=== PATIENT | male | born 1960 | race Caucasian/White ===

== ENCOUNTER 2018-08-20 00:57 | Emergency (ER) | payer OTHER ==
[~2018-08-20] VITALS: Ht 170.2 cm; Wt 102.1 kg
--- NOTE | 2018-08-20 01:09 | NUR ---
PT BIB RA FROM [facility] WITH A C/O MIDSTERNAL INCISION PAIN WITH MOVEMENT AND PALPATION. PT STATED THAT IT STARTED HURTING WHEN HE WAS MOVED FROM HIS BED TO A . PT HAD A CABG ON 07/26/18.
[2018-08-20] MEDS ORDERED: MORPHINE SULFATE INJ 4 MG/ML DISP.SYRIN ONE (01:13)
[2018-08-20 01:22] LABS: BASOPHILS # (AUTO) 0.1 /CMM (0.0-0.2); BASOPHILS % (AUTO) 0.7 % (0.0-2.0); EOSINOPHILS % (AUTO) 6.4 % (0.0-6.0); HEMATOCRIT 32 % (39-51); HEMOGLOBIN 10.7 g/dL (13.5-17.5); LYMPHOCYTES % (AUTO) 13.9 % (20.0-44.0); MEAN CORPUSCULAR HGB CONC 33 g/dl (31.0-36.0); MEAN CORPUSCULAR VOLUME 85 fL (80-96); MONOCYTES # (AUTO) 0.6 /CMM (0.1-1.30); MONOCYTES % (AUTO) 8.4 % (2.0-12.0); NEUTROPHILS # (AUTO) 5.2 /CMM (1.8-8.9); NEUTROPHILS % (AUTO) 70.6 % (43.0-81.0); PLATELET COUNT (AUTO) 160 /CMM (150-450); RED BLOOD CELL COUNT(AUTO) 3.81 MIL/uL (4.5-6.0); WHITE BLOOD COUNT (AUTO) 7.4 K/uL (4.3-11.0)
[2018-08-20] MEDS ORDERED: MORPHINE SULFATE INJ 2 MG/ML DISP.SYRIN IV ONE (01:30)
--- NOTE | 2018-08-20 01:40 | NUR ---
XRAY IN PROGRESS AT THE BEDSIDE.
[2018-08-20 01:44] LABS: CALCIUM, SERUM 8.6 mg/dL (8.5-10.1); CREATININE 0.7 mg/dL (0.6-1.3); POTASSIUM 3.9 mmol/L (3.5-5.1)
--- NOTE | 2018-08-20 01:49 | NUR ---
SPOKE TO PATTI AT [facility]. LUIS 9950 TRIP#: [id number]
[2018-08-20] MEDS ORDERED: LISINOPRIL (5MG) 5 MG TABLET ONE (02:57)
--- NOTE | 2018-08-20 03:00 | NUR ---
PT'S BP WAS ELEVATED 151/101. NEW ORDERS GIVEN. ER DID NOT HAVE THE MEDICATION, BUT WAS ABLE TO OBTAIN MEDICATION FROM [facility].
[2018-08-20] MEDS: LISINOPRIL (5MG) 5 MG TABLET PO SCH ×2 (03:03→04:11)
--- NOTE | 2018-08-20 03:03 | NUR ---
RECYCLED PT'S BP. BP IS NOW 145/93. NOTIFIED. HOLD LISINOPRIL PER DR ROJAS.
--- NOTE | 2018-08-20 03:41 | NUR ---
PT APPEARS TO BE RESTING COMFORTABLY WITH NO S/S OF PAIN OR DISTRESS. VSS.
--- NOTE | 2018-08-20 04:12 | NUR ---
Report given to [facility] emt. Called [facility] to let them know that the pt is returning. Patient discharged to home in stable condition. Written and verbal after care instructions given. Patient verbalizes understanding of instruction. Pt left via ambulance. VSS
[2018-08-20 04:15] VITALS: BP 138/92
== END 2018-08-20 04:16 | disposition home or self-care (01) ==
LOC: ER 00:57
DX: R07.89 Other chest pain (principal); G89.18 Other acute postprocedural pain; I10 Essential (primary) hypertension; I25.2 Old myocardial infarction; E11.9 Type 2 diabetes mellitus without complications; Z95.5 Presence of coronary angioplasty implant and graft; Z98.890 Other specified postprocedural states
CPT/HCPCS: 36415; 71045; 80048; 82962; 83880; 84484; 85025; 93005; 96374; 99284; J2270

== ENCOUNTER 2018-10-14 01:11 | Emergency (ER) | payer OTHER, MEDICAID ==
[~2018-10-14] VITALS: Ht 170.2 cm; Wt 90.7 kg
[2018-10-14] MEDS ORDERED: MORPHINE SULFATE INJ 2 MG/ML DISP.SYRIN IV ONE (01:30)
[2018-10-14] MEDS ORDERED: ONDANSETRON HCL/PF 4 MG/2 ML VIAL IVP ONE (01:30)
--- NOTE | 2018-10-14 01:30 | NUR ---
BIBA FOR C/O CP RADIATING TO THE RA PER PT HES BEEN HAVING THIS PAIN FOR THE PAST TWO MONTHS BUT WORSE TODAY. 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 PT STILL HAS A 1X1CM WOUND W /DISCHARGES ON THE ANTERIOR CHEST. PLACED ON A MONITOR , VSS. WILL CONT TO MONITOR ,
[2018-10-14] MEDS ORDERED: ONDANSETRON HCL/PF 4 MG/2 ML VIAL ONE (01:36)
[2018-10-14] MEDS ORDERED: MORPHINE SULFATE INJ 4 MG/ML DISP.SYRIN ONE (01:36)
[2018-10-14 01:48] LABS: BASOPHILS # (AUTO) 0.1 /CMM (0.0-0.2); BASOPHILS % (AUTO) 0.9 % (0.0-2.0); EOSINOPHILS % (AUTO) 1.9 % (0.0-6.0); HEMATOCRIT 37 % (39-51); HEMOGLOBIN 12.1 g/dL (13.5-17.5); LYMPHOCYTES # (AUTO) 1.2 /CMM (0.8-4.8); LYMPHOCYTES % (AUTO) 11.6 % (20.0-44.0); MEAN CORPUSCULAR HGB CONC 33 g/dl (31.0-36.0); MEAN CORPUSCULAR VOLUME 79 fL (80-96); MONOCYTES # (AUTO) 0.6 /CMM (0.1-1.30); MONOCYTES % (AUTO) 5.6 % (2.0-12.0); NEUTROPHILS # (AUTO) 8.3 /CMM (1.8-8.9); PLATELET COUNT (AUTO) 320 /CMM (150-450); RED BLOOD CELL COUNT(AUTO) 4.68 MIL/uL (4.5-6.0); WHITE BLOOD COUNT (AUTO) 10.4 K/uL (4.3-11.0)
[2018-10-14 01:54] LABS: CALCIUM, SERUM 9.1 mg/dL (8.5-10.1); CREATININE 0.7 mg/dL (0.6-1.3); POTASSIUM 4.7 mmol/L (3.5-5.1)
--- NOTE | 2018-10-14 02:01 | NUR ---
Patient is resting comfortably in bed with eyes closed. Easily aroused. VSS
[2018-10-14] MEDS ORDERED: ASPIRIN 325 MG TABLET PO ONE (03:00)
--- NOTE | 2018-10-14 03:04 | NUR ---
[facility] FAX# [phone] ATT: ZACHARY
[2018-10-14] MEDS ORDERED: ASPIRIN 325 MG TABLET ONE (03:06)
--- NOTE | 2018-10-14 03:25 | NUR ---
ACCEPTED AT [facility] BY DR. TELLES [facility] [id number] [place], [place] [id number] FAVIO, LINUX UNIX ADMINISTRATOR FOR REPORT
--- NOTE | 2018-10-14 03:31 | NUR ---
[facility] TRIP #[id number] ETA APROX [id number]
--- NOTE | 2018-10-14 03:36 | NUR ---
CALLED [facility] AND GAVE REPORT TO FAVIO (ER CHARGE NURSE)
[2018-10-14 04:16] VITALS: BP 109/77
--- NOTE | 2018-10-14 04:17 | NUR ---
PT WWAS TRANSFERRED TO [facility] IN STABLE CONDITION WITH ACLS TRANSPO. VSS
[2018-11-23] MEDS ORDERED: LACT1CAP72 PO (14:40)
[2018-11-23] MEDS ORDERED: METH500T6 PO (14:40)
[2018-11-23] MEDS ORDERED: CEFT1VIA15 IV (14:40)
[2018-11-23] MEDS ORDERED: ATOR10TA PO (14:40)
[2018-11-23] MEDS ORDERED: RXVAN XX (14:40)
[2018-11-23] MEDS ORDERED: LOSA50TA3 PO (14:40)
[2018-11-23] MEDS ORDERED: VANC1.2526 IV (14:40)
[2018-11-23] MEDS ORDERED: OXYC1TAB8 PO (14:40)
[2018-11-23] MEDS ORDERED: GABA300C PO (14:40)
== END 2018-10-14 04:21 | disposition short-term general hospital (02) ==
LOC: ER 01:14
DX: I21.4 Non-ST elevation (NSTEMI) myocardial infarction (principal); T81.49XA Infection following a procedure, other surgical site, initial encounter; I10 Essential (primary) hypertension; I48.91 Unspecified atrial fibrillation; E11.9 Type 2 diabetes mellitus without complications; Z98.890 Other specified postprocedural states; Z95.818 Presence of other cardiac implants and grafts
CPT/HCPCS: 36415; 71045; 80048; 83605; 84484; 85025; 87040 ×2; 87070; 93005; 96374; 96375; 99285; A6402; J2270; J2405

== ENCOUNTER 2018-11-21 21:54 | Inpatient (IN) | payer MEDICAID, OTHER ==
[~2018-11-21] VITALS: Ht 170.2 cm; Wt 98.0 kg
--- NOTE | 2018-11-21 22:10 | NUR ---
BIBA FOR C/O CP X 1 WK. HAD A HEART VALVE REPLACEMENT ON 07/26/18 AND R FOOT AMPUTATION 2 WKS PRIOR TO THAT. PLACED ON A MONITOR.
--- NOTE | 2018-11-21 22:13 | NUR ---
ECG TECH AT THE BED SIDE
[2018-11-21] MEDS ORDERED: CLINDAMYCIN 900 MG in IV D5W 100 ML IV ONE (22:30)
[2018-11-21] MEDS ORDERED: NITROGLYCERIN PACKET 1 GM PACKET TD ONE (22:30)
[2018-11-21] MEDS ORDERED: ASPIRIN 81 MG TAB.CHEW PO ONE (22:30)
[2018-11-21] MEDS ORDERED: ONDANSETRON HCL/PF 4 MG/2 ML VIAL IVP ONE (22:30)
[2018-11-21] MEDS ORDERED: HYDROMORPHONE INJ 2 MG/ML DISP.SYRIN IV ONE (22:30)
[2018-11-21] MEDS ORDERED: NITROGLYCERIN 0.4 MG/TAB BOTTLE SL ONE (22:30)
[2018-11-21] MEDS ORDERED: ASPIRIN 81 MG TAB.CHEW ONE (22:42)
[2018-11-21] MEDS ORDERED: NITROGLYCERIN PACKET 1 GM PACKET ONE (22:42)
[2018-11-21] MEDS ORDERED: NITROGLYCERIN 0.4 MG/TAB BOTTLE ONE (22:42)
[2018-11-21] MEDS ORDERED: ONDANSETRON HCL/PF 4 MG/2 ML VIAL ONE (22:42)
[2018-11-21] MEDS ORDERED: HYDROMORPHONE 1 MG/1 ML DISP.SYRIN ONE (22:42)
[2018-11-21 22:50] LABS: BASOPHILS # (AUTO) 0.1 /CMM (0.0-0.2); BASOPHILS % (AUTO) 1.1 % (0.0-2.0); EOSINOPHILS % (AUTO) 4.2 % (0.0-6.0); HEMATOCRIT 31 % (39-51); LYMPHOCYTES % (AUTO) 9.6 % (20.0-44.0); MEAN CORPUSCULAR HGB CONC 33 g/dl (31.0-36.0); MEAN CORPUSCULAR VOLUME 77 fL (80-96); MONOCYTES # (AUTO) 0.8 /CMM (0.1-1.30); MONOCYTES % (AUTO) 8.3 % (2.0-12.0); NEUTROPHILS # (AUTO) 7.7 /CMM (1.8-8.9); NEUTROPHILS % (AUTO) 76.8 % (43.0-81.0); PLATELET COUNT (AUTO) 299 /CMM (150-450); RED BLOOD CELL COUNT(AUTO) 3.97 MIL/uL (4.5-6.0); WHITE BLOOD COUNT (AUTO) 10.1 K/uL (4.3-11.0)
[2018-11-21] MEDS ORDERED: CLINDAMYCIN 900 MG/6 ML VIAL ONE (22:55)
[2018-11-21 22:59] LABS: CALCIUM, SERUM 8.5 mg/dL (8.5-10.1); CREATININE 0.7 mg/dL (0.6-1.3); POTASSIUM 4.5 mmol/L (3.5-5.1)
[2018-11-21 23:12] LABS: ALBUMIN 1.9 g/dL (3.4-5.0); BILIRUBIN,DIRECT 0.1 mg/dL (0.0-0.2); BILIRUBIN,TOTAL 0.2 mg/dL (0.2-1.0); TOTAL PROTEIN, SERUM 6.8 g/dL (6.4-8.2)
[2018-11-21 23:42] LABS: D-DIMER 2.71 mg/L(FEU (0.17-0.50)
[2018-11-22] MEDS ORDERED: CT SWABBABLE VALVE TRANS SET 1 EA INFUS.SET MC ONE (00:05)
[2018-11-22] MEDS ORDERED: IOHEXOL-350 100 ML VIAL IV ONE (00:05)
[2018-11-22] MEDS ORDERED: IV NS 0.9% 250 ML IV ONE (00:05)
--- NOTE | 2018-11-22 01:05 | NUR ---
Patient is resting comfortably in bed with eyes closed. Easily aroused. VSS
[2018-11-22] MEDS ORDERED: HYDROMORPHONE 1 MG/1 ML DISP.SYRIN ONE (02:13)
--- NOTE | 2018-11-22 02:26 | NUR ---
REPORT GIVEN TO NIKO ON THIRD FLOOR
[2018-11-22] MEDS ORDERED: VANCOMYCIN 1 GM in IV NS 0.9% 250 ML IV ONE (02:30)
[2018-11-22] MEDS ORDERED: HYDROMORPHONE 1 MG/1 ML DISP.SYRIN IV PRN (02:30)
[2018-11-22] MEDS ORDERED: ONDANSETRON HCL/PF 4 MG/2 ML VIAL IVP PRN (02:30)
[2018-11-22] MEDS ORDERED: Z GUARD REMEDY 2 OZ OINT TP PRN (02:30)
[2018-11-22] MEDS ORDERED: TAMS-12 GT (02:34)
[2018-11-22] MEDS ORDERED: FLUO-120 PO (02:34)
[2018-11-22] MEDS ORDERED: SENN-168 PO (02:34)
[2018-11-22] MEDS ORDERED: ASPI-1169 PO (02:34)
[2018-11-22] MEDS ORDERED: PANT40TA4 PO (02:34)
[2018-11-22] MEDS ORDERED: INSU100V7 SQ (02:34)
[2018-11-22] MEDS ORDERED: GABA-534 PO (02:34)
--- NOTE | 2018-11-22 02:45 | NUR ---
WIND TURBINE ERECTORVENEER SLICING MACHINE OPERATOR NOTES ADMITTED FROM ER THIS 57 Y.O. MALE, A RESIDENT OF [facility],WITH CHIEF COMPLAINTS OF CHEST PAIN X 1WEEK.A/O X4,WITH KNOWN HX OF BYPASS ON JULY 2018 AT [facility]..NOTED REDNESS ON INCISION SITE,NO EXUDATE NOTED.OPEN TO AIR.WITH KNOWN HX ALSO ON LEFT FOOT TRANSMETATARSAL AMPUTATION ON 06/2018.WITH RIGHT UPPER ARM PICC LINE INSERTED AT [facility].ORIENTED TO ROOM SET UP.CALL LIGHT IN REACH,NEEDS ANTICIPATED.
--- NOTE | 2018-11-22 02:57 | NUR ---
PT WAS TRANSFERRED TO 306-2 UNDER ACLS PROTOCOL IN STABLE CONDITION
[2018-11-22 03:00] VITALS: BP 101/72
[2018-11-22] MEDS ORDERED: DEXTROSE 50%-WATER 50 ML DISP.SYRIN IV PRN (03:00)
[2018-11-22] MEDS ORDERED: VANCOMYCIN 1.75 GM in IV NS 0.9% 500 ML IV ONE ×2 (03:30→04:30)
[2018-11-22] MEDS ORDERED: CEFTRIAXONE 1 G VIAL ONE (03:34)
[2018-11-22] MEDS: CEFTRIAXONE 1 G in IV D5W 50 ML IV SCH (03:35)
--- NOTE | 2018-11-22 03:35 | NUR ---
BALLPOINT PENS ASSEMBLER NOTES STARTED ON ROCEPHIN 1GM IV ORDERED.
[2018-11-22] MEDS ORDERED: VANCOMYCIN 1 GM VIAL ONE ×2 (03:57→03:59)
[2018-11-22 04:00] VITALS: BP 120/75
--- NOTE | 2018-11-22 04:42 | NUR ---
CORE INSPECTOR NOTES STARTED ON VANCOMYCIN 1.75MG IN NS 500ML INFUSING AT 250ML/HR RATE OVER 2 HOURS VIA IV PUMP.
[2018-11-22] MEDS: MORPHINE SULFATE INJ 4 MG/ML DISP.SYRIN IV PRN ×6 (05:22→22:14)
--- NOTE | 2018-11-22 05:22 | NUR ---
LOSS PREVENTION OPERATIONS MANAGER NOTES PAIN MANAGEMENT C/O CHEST PAIN 10/10 ON PAIN SCALE.MEDICATED WITH MORPHINE 4MG IV ORDERED.
--- NOTE | 2018-11-22 06:27 | NUR ---
LIVING SUPERVISOR NOTES SR WITH BBB,INSTRUCTED NPO FOR NOW TILL SEEN BY CARDIO.LAYING COMFORTABLY ON BED,IV ABX TOLERATED WELL.REFUSED BLOOD DRAW EARLY.MEAT PROCESS WORKER TO COMEBACK LATER.IN NO ACUTE DISTRESS.WILL ENDORSE TO DAY NURSE FOR LIZETT.
[2018-11-22] MEDS ORDERED: FEE PK DOSING 1 MIN EA MC ONE (06:50)
--- NOTE | 2018-11-22 07:30 | NUR ---
tele product design specialist: initial assessment received pt in bed awake, a/ox4. no c/o pain at this time. noted with mid chest area with wound; will defer to md. awaiting for md evaluation. tele sr with 1st degree av block with bbb. vss. pt had cabg done at the mo on 07/26/2018. for wound consult. instructed to call for assistance. will continue to monitor.
[2018-11-22] MEDS: BLOOD SUGAR DIAGNOSTIC 1 EACH STRIP IN SCH ×4 (07:36→21:14)
[2018-11-22 08:00] VITALS: BP 112/74
--- NOTE | 2018-11-22 08:30 | NUR ---
tele bead trimmer: cardio consult seen and examined by dr. casey with new orders. orders acknowledged.
[2018-11-22] MEDS: LOSARTAN POTASSIUM 50 MG TABLET PO SCH (08:52)
[2018-11-22] MEDS: ENOXAPARIN SODIUM 40 MG/0.4 ML DISP.SYRIN SQ SCH (08:52)
--- NOTE | 2018-11-22 09:00 | NUR ---
tele pupil personnel worker: md visit seen and examined by jojo blankenship (acnp) at this time. all questions and concerns by pt answered by jojo.
--- NOTE | 2018-11-22 09:19 | NUR ---
tele hvac sales engineer: notes c/o 02/03 chest pain, medicated with morphine 4mg ivp by rn. instructed to call for assistance. will continue to monitor.
[2018-11-22] MEDS: ATORVASTATIN 10 MG TABLET PO SCH (09:38)
[2018-11-22] MEDS: ASPIRIN 81 MG TAB.CHEW PO SCH (09:38)
[2018-11-22] MEDS: GABAPENTIN 300 MG CAPSULE PO SCH ×2 (09:38→17:29)
[2018-11-22] MEDS: PANTOPRAZOLE 40 MG TABLET.DR PO SCH (09:38)
[2018-11-22] MEDS: FLUOXETINE HCL 20 MG CAPSULE PO SCH (09:39)
--- NOTE | 2018-11-22 09:49 | NUR ---
tele pull through hooker: notes pt verbalized relief of chest pain 4/10 at this time. instructed to call for assistance. will monitor.
--- NOTE | 2018-11-22 10:00 | NUR ---
m/s felt dyeing machine tender: notes place a call to al medical record, spoke to alex and wants me to re fax the authorization for use or disclosure of health information once more if wants it urgent/stat as stated and per policy the routine will be up to 20 days. re faxed authorization for use or disclosure of health information as urgent.
[2018-11-22 11:19] LABS: CALCIUM, SERUM 8.4 mg/dL (8.5-10.1); CREATININE 0.7 mg/dL (0.6-1.3); MAGNESIUM 1.5 mg/dL (1.8-2.4); PHOSPHORUS 3.8 mg/dL (2.5-4.9); POTASSIUM 4.1 mmol/L (3.5-5.1)
[2018-11-22 11:20] LABS: FERRITIN 108 ng/mL (8-388)
[2018-11-22 11:21] LABS: THYROID STIMULATING HORMONE 1.6 uIU/mL (0.358-3.74)
[2018-11-22 11:22] LABS: IRON, SERUM 15 ug/dl (50-175); TOTAL IRON BINDING CAPACITY 182 ug/dl (250-450)
[2018-11-22 11:26] LABS: BASOPHILS # (AUTO) 0.1 /CMM (0.0-0.2); BASOPHILS % (AUTO) 0.7 % (0.0-2.0); EOSINOPHILS % (AUTO) 3.9 % (0.0-6.0); HEMATOCRIT 31 % (39-51); HEMOGLOBIN 9.9 g/dL (13.5-17.5); LYMPHOCYTES # (AUTO) 0.8 /CMM (0.8-4.8); LYMPHOCYTES % (AUTO) 8.8 % (20.0-44.0); MEAN CORPUSCULAR HGB CONC 32 g/dl (31.0-36.0); MEAN CORPUSCULAR VOLUME 77 fL (80-96); MONOCYTES # (AUTO) 0.8 /CMM (0.1-1.30); NEUTROPHILS # (AUTO) 6.8 /CMM (1.8-8.9); NEUTROPHILS % (AUTO) 77.6 % (43.0-81.0); PLATELET COUNT (AUTO) 279 /CMM (150-450); RED BLOOD CELL COUNT(AUTO) 3.98 MIL/uL (4.5-6.0); WHITE BLOOD COUNT (AUTO) 8.8 K/uL (4.3-11.0)
--- NOTE | 2018-11-22 11:35 | NUR ---
WOUND CARE CONSULT: PT PRESENTS WITH INCISION TO CHEST WITH RAISED CLEAR AREAS AND REDNESS AROUND INCISION, PRESENT ON ADMISSION. SURGICAL CONSULT CALLED TO DR LEHMAN PER ERIKA ZUÑIGA N.P. DR LEHMAN AWARE OF SURGICAL CONSULT REQUEST. DEFER TO SURGICAL TEAM FOR WOUND TREATMENT PLAN. PT IS INCONTINENT. RECOMMENDATIONS MADE FOR SKIN PROTECTION. DISCUSSED WITH NURSING STAFF. WILL SEE PRN. SHABAZZ IN AGREEMENT WITH PLAN OF CARE. Addendum: 11/23/18 at 0930 by EDER BYOD WNDNU ADDITIONALLY RT FOOT SCARRING NOTED FROM PREVIOUS TMA SURGERY.
--- NOTE | 2018-11-22 12:00 | NUR ---
m/s high risk case manager: notes pt refused to be repositioned despite encouragement. pt remains easily irritated. instructed to call for assistance. will monitor.
--- NOTE | 2018-11-22 12:15 | NUR ---
m/s household appliance installer: notes c/o 10/10 chest pain, medicated with morphine 4mg ivp by rn. instructed to call for assistance. will continue to monitor.
[2018-11-22] MEDS: VANCOMYCIN 1.25 GM in IV D5W 500 ML IV SCH ×2 (12:23→20:58)
--- NOTE | 2018-11-22 12:45 | NUR ---
m/s work over rig operator: notes pt still having lunch and voiced no discomfort at this time. instructed to call for assistance.
[2018-11-22] MEDS: Magnesium 1GM/D5W 100ML PREMIX 100 ML IV SCH ×2 (13:56→15:28)
--- NOTE | 2018-11-22 14:00 | NUR ---
carolyn/maureen reisn: notes received new treatment order from xi Causeyp.aDeanna plastic surgeon). order acknowledged. tx done as ordered. Addendum: 11/22/18 at 1829 by ALEXIS REISN pt refused to be repositioned, despite encouragement from staff.
--- NOTE | 2018-11-22 15:28 | NUR ---
m/s tank truck operator: notes c/o 10/10 chest pain, medicated with morphine 4mg ivp by rn. instructed to call for assistance. will continue to monitor.
[2018-11-22 16:00] VITALS: BP 110/77
--- NOTE | 2018-11-22 16:00 | NUR ---
m/s mogul operator: notes pt still refuses to be repositioned despite encouragement. pt remains easily irritated. instructed to call for assistance. will monitor.
--- NOTE | 2018-11-22 16:30 | NUR ---
m/s transport aircrewman: notes skin assessment corrected from 1000 intervention, pt has s/p right foot transmetatarsal amputation with healed incision and left foot assessment is incorrect.
[2018-11-22] MEDS: INSULIN REGULAR, HUMAN 100 UNIT/ML 3 ML VIAL SQ PRN ×2 (17:31→21:20)
--- NOTE | 2018-11-22 17:45 | NUR ---
m/s director of corporate real estate: id consult seen by dr. ball with order. order acknowledged. will f/u with the [facility] re: id's request.
--- NOTE | 2018-11-22 18:25 | NUR ---
m/s water ski assembler: notes pt refused am and pm care per alcoholic counselor. also pt refused to be repositioned, pt just wants to lay supine. when encourage and teaching provided, pt easily get irritated. needs attended. will continue to monitor. call light within reach.
--- NOTE | 2018-11-22 18:33 | NUR ---
m/s surgical garment fitter: notes c/o 12/04 chest pain, medicated with morphine 4mg ivp by rn. instructed to call for assistance. will continue to monitor.
--- NOTE | 2018-11-22 19:03 | NUR ---
m/s sand hauler: notes report given to alejandra (rn) for continuity of care. pt verbalized relief of pain. needs attended. call light within reach.
--- NOTE | 2018-11-22 19:30 | NUR ---
RN MS OPENING NOTES RECEIVED PATIENT IN BED AWAKE, ALERT AND ORIENTED X3, VERBALLY RESPONSIVE, ABLE TO MAKE NEEDS KNOWN. BREATHING EVEN AND UNLABORED. NO SOB NOTED. CURRENTLY WITH COMPLAINTS OF PAIN ON THE MID CHEST AREA. INFORMED PATIENT THAT THE PAIN MEDICATION IS NOT DUE YET AND WILL BE GIVEN WHEN IT IS DUE - PATIENT VERBALIZED UNDERSTANDING. RIGHT UPPER ARM PICC LINE INTACT AND PATENT. SKIN DRY AND WARM TO TOUCH. PATIENT NOTED WITH CONDOM CATH, INTACT AND DRAINING WELL. PATIENT ALSO ON BOOTS ON THE RIGHT FOOT S/P AMPUTATION 06/2018. DRESSING ON THE MID CHEST AREA CLEAN DRY AND INTACT. NO DRAINAGE NOTED. ALL OTHER NEEDS ATTENDED TO. SAFETY MEASURES IN PLACE. CALL LIGHT WITHIN REACH. WILL CONTINUE TO MONITOR. Addendum: 11/23/18 at 0017 by TORIBIO HERRMANN RN ERROR; TIME IS SUPPOSE TO BE 2029.
[2018-11-22 20:00] VITALS: BP 117/64
--- NOTE | 2018-11-22 20:25 | NUR ---
ALLEN BAKER TRANSFER OF CARE: CAME BACK TO THE UNIT FROM ICU, ALLEN SON GAVE REPORT TO TORIBIO FOR CONTINUITY OF CARE. Addendum: 11/23/18 at 0652 by VITOR GR RN CLARIFICATION FOR TRANSFER OF CARE NOTES: RN CAME BACK TO THE UNIT FROM ICU, ALLEN SON GAVE REPORT TO TORIBIO FOR CONTINUITY OF CARE.
--- NOTE | 2018-11-22 20:25 | NUR ---
RN NOTES TRANSFER OF CARE: RN CAME BACK TO THE UNIT FROM ICU, TRUCK DRIVER TEAMSTER HUY GAVE REPORT TO TORIBIO FOR CONTINUITY OF CARE.
[2018-11-22] MEDS: SENNOSIDES 8.6 MG TABLET PO SCH (21:07)
[2018-11-22] MEDS: TAMSULOSIN 0.4 MG CAP.SR.24H GT SCH (21:07)
[2018-11-22] MEDS: INSULIN GLARGINE, 100 UNIT/ML CARTRIDGE SQ SCH (21:17)
--- NOTE | 2018-11-22 22:00 | NUR ---
RN MS NOTES PATIENT REFUSED TO BE TURNED AND REPOSITION DESPITE EXPLANATION OF RISKS AND BENEFITS. PATIENT REFUSED MULTIPLE TIMES. WILL CONTINUE TO MONITOR AND ENCOURAGE.
--- NOTE | 2018-11-23 00:26 | NUR ---
RN MS NOTES PATIENT REFUSED TO BE TURNED AND REPOSITION DESPITE EXPLANATION OF RISKS AND BENEFITS.
--- NOTE | 2018-11-23 02:01 | NUR ---
RN MS NOTES PATIENT REFUSED TO BE TURNED AND REPOSITION DESPITE EXPLANATION OF RISKS AND BENEFITS.
[2018-11-23] MEDS: CEFTRIAXONE 1 G in IV D5W 50 ML IV SCH (03:27)
--- NOTE | 2018-11-23 04:00 | NUR ---
RN MS NOTES PATIENT REFUSED TO BE TURNED AND REPOSITION DESPITE EXPLANATION OF RISKS AND BENEFITS. PER PATIENT HE "JUST WANTS TO BE LEFT ALONE." WILL CONTINUE TO MONITOR AND ENCOURAGE.
--- NOTE | 2018-11-23 04:40 | NUR ---
RN MS NOTES PATIENT REFUSED BLOOD DRAW THIS AM WHICH INCLUDES VANCOMYCIN TROUGH. EXPLAINED RISKS AND BENEFITS BUT STILL REFUSED. EXPLAINED TO PATIENT THAT I WILL TAKE BLOOD FROM PICC LINE BUT PATIENT STILL REFUSED. PATIENT BECAME RUDE TOLD ME TO "LEAVE HIM ALONE." UNABLE TO GIVE VANCOMYCIN IV FOR 0500. KEN XIAO MADE AWARE OF PATIENT'S REFUSAL WELL NOT BEING ABLE TO GET VANCOMYCIN THIS MORNING. KEN PORTILLO SAID "K." NO FURTHER ORDERS. WILL CONTINUE TO MONITOR.
[2018-11-23] MEDS: VANCOMYCIN 1.25 GM in IV D5W 500 ML IV SCH ×2 (05:00→12:39)
[2018-11-23] MEDS: MORPHINE SULFATE INJ 4 MG/ML DISP.SYRIN IV PRN ×5 (05:05→23:20)
--- NOTE | 2018-11-23 05:15 | NUR ---
RN MS NOTES PATIENT AGREED TO BLOOD DRAW AND APOLOGIZED FOR HIS BEHAVIOR. PER PATIENT "ITS EARLY IN THE MORNING AND IM NOT USUALLY MYSELF THIS EARLY." ALSO PER PATIENT, HE JUST GOT STARTLED BY THE HOSPITAL ADMITTING CLERK WHICH TRIGGERED HIS RUDENESS. OFFERED TO DO BLOOD DRAW FROM PICC LINE AND PATIENT AGREED. CALLED LAB AND SPOKE WITH ABDIRIZAK. PER ABDIRIZAK, PHLEBOTOMISTS ARE ON THEIR WAY HERE.
--- NOTE | 2018-11-23 05:34 | NUR ---
RN MS NOTES BLOOD DRAW TAKEN FROM PICC LINE. WILL WAIT FOR RESULTS PRIOR TO GIVING VANCOMYCIN.
[2018-11-23] MEDS: BLOOD SUGAR DIAGNOSTIC 1 EACH STRIP IN SCH ×4 (06:33→21:31)
[2018-11-23] MEDS: INSULIN REGULAR, HUMAN 100 UNIT/ML 3 ML VIAL SQ PRN ×4 (06:34→21:35)
[2018-11-23 06:35] LABS: BASOPHILS # (AUTO) 0.1 /CMM (0.0-0.2); BASOPHILS % (AUTO) 0.8 % (0.0-2.0); EOSINOPHILS % (AUTO) 4.1 % (0.0-6.0); HEMATOCRIT 30 % (39-51); HEMOGLOBIN 9.6 g/dL (13.5-17.5); LYMPHOCYTES # (AUTO) 0.7 /CMM (0.8-4.8); LYMPHOCYTES % (AUTO) 8.7 % (20.0-44.0); MEAN CORPUSCULAR HGB CONC 32 g/dl (31.0-36.0); MEAN CORPUSCULAR VOLUME 77 fL (80-96); MONOCYTES # (AUTO) 0.8 /CMM (0.1-1.30); NEUTROPHILS # (AUTO) 6.5 /CMM (1.8-8.9); NEUTROPHILS % (AUTO) 77.4 % (43.0-81.0); PLATELET COUNT (AUTO) 267 /CMM (150-450); RED BLOOD CELL COUNT(AUTO) 3.86 MIL/uL (4.5-6.0); WHITE BLOOD COUNT (AUTO) 8.4 K/uL (4.3-11.0)
--- NOTE | 2018-11-23 06:48 | NUR ---
RN NOTES [id number] - NO RESULT FOR VANCO TROUGH YET. STILL PENDING.
--- NOTE | 2018-11-23 06:51 | NUR ---
RN MS CLOSING NOTES PATIENT RESTING IN BED. NO ACUTE CHANGES THROUGHOUT SHIFT. BREATHING EVEN AND UNLABORED. NO SOB NOTED. CURRENTLY WITH NO COMPLAINTS OF PAIN OR DISCOMFORT. RIGHT UPPER ARM PICC LINE INTACT AND PATENT. CONDOM CATH INTACT AND DRAINING WELL. PATIENT'S BOOTS ON THE RIGHT FOOT S/P AMPUTATION 06/2018. DRESSING ON THE MID CHEST AREA CLEAN DRY AND INTACT. NO DRAINAGE NOTED. ALL NEEDS ATTENDED TO. SAFETY MEASURES IN PLACE. CALL LIGHT WITHIN REACH. WILL ENDORSE TO ONCOMING NURSE FOR LIZETT.
--- NOTE | 2018-11-23 07:00 | NUR ---
RN MS NOTES CALLED PHARMACY AND SPOKE TO EMILIA REGARDING PATIENT'S VANCO TROUGH STILL PENDING. INFORMED EMILIA THAT THE VANCO IS 2 HOURS LATE DUE TO PATIENT'S REFUSAL ONT HE FIRST BLOOD DRAW AND THAT I WILL HAVE TO ENDORSE THE VANCOMYCIN IV TO DAY NURSE AND PER EMILIA THAT'S OK WAIT FOR TROUGH.
[2018-11-23 07:06] LABS: ALBUMIN 1.8 g/dL (3.4-5.0); BILIRUBIN,TOTAL 0.2 mg/dL (0.2-1.0); CALCIUM, SERUM 8.3 mg/dL (8.5-10.1); PHOSPHORUS 4.5 mg/dL (2.5-4.9); POTASSIUM 4.4 mmol/L (3.5-5.1); TOTAL PROTEIN, SERUM 6.6 g/dL (6.4-8.2)
--- NOTE | 2018-11-23 07:06 | NUR ---
RN MS NOTES RECEIVED VANCO TROUGH - 24. WILL HOLD VANCOMYCIN DOSE FOR 0500.
--- NOTE | 2018-11-23 07:40 | NUR ---
ms rn received on bed,awake,alert,oriented x3,not in any form of distress, respirations even and unlabored,no sob noted, lungs are clear,abdomen soft,positive bowel sounds,denies pain at this time,all needs attended.
[2018-11-23] MEDS: PANTOPRAZOLE 40 MG TABLET.DR PO SCH (08:06)
[2018-11-23 08:26] VITALS: BP 110/77
[2018-11-23] MEDS: GABAPENTIN 300 MG CAPSULE PO SCH ×3 (08:26→17:35)
[2018-11-23] MEDS: FLUOXETINE HCL 20 MG CAPSULE PO SCH (08:26)
[2018-11-23] MEDS: ACETAMINOPHEN 325 MG TABLET PO PRN (08:26)
[2018-11-23] MEDS: LOSARTAN POTASSIUM 50 MG TABLET PO SCH (08:26)
[2018-11-23] MEDS: ATORVASTATIN 10 MG TABLET PO SCH (08:26)
[2018-11-23] MEDS: ASPIRIN 81 MG TAB.CHEW PO SCH (08:26)
[2018-11-23] MEDS: LACTOBACILLUS RHAMNOSUS GG 1 EACH CAP.SPRINK PO SCH ×2 (08:26→17:35)
[2018-11-23] MEDS: ENOXAPARIN SODIUM 40 MG/0.4 ML DISP.SYRIN SQ SCH (08:27)
--- NOTE | 2018-11-23 09:00 | NUR ---
ms rogel breakfast served,due meds given,tolerated well.
[2018-11-23] MEDS ORDERED: oxyCODONE/APAP (5/325 MG) 1 UDTAB TABLET PO PRN (09:30)
[2018-11-23] MEDS: METHOCARBAMOL (500MG) 500 MG TABLET PO SCH ×3 (09:38→17:35)
--- NOTE | 2018-11-23 11:00 | NUR ---
ms rn was seen by refugio price/ order to be transferred to [facility].family notified.
[2018-11-23] MEDS ORDERED: GABA300C PO (14:40)
[2018-11-23] MEDS ORDERED: LOSA50TA3 PO (14:40)
[2018-11-23] MEDS ORDERED: VANC1.2526 IV (14:40)
[2018-11-23] MEDS ORDERED: METH500T6 PO (14:40)
[2018-11-23] MEDS ORDERED: LACT1CAP72 PO (14:40)
[2018-11-23] MEDS ORDERED: ATOR10TA PO (14:40)
[2018-11-23] MEDS ORDERED: RXVAN XX (14:40)
[2018-11-23] MEDS ORDERED: OXYC1TAB8 PO (14:40)
[2018-11-23] MEDS ORDERED: CEFT1VIA15 IV (14:40)
[2018-11-23 16:00] VITALS: BP 91/46
--- NOTE | 2018-11-23 16:00 | NUR ---
ms rn patient has been complaining of pain ,was been given pain meds as ordered regularly.
[2018-11-23] MEDS: SOD FERRIC GLUC 125 MG in IV NS 0.9% 100 ML IV SCH (17:36)
--- NOTE | 2018-11-23 18:30 | NUR ---
ms rn on bed, no distress noted.
--- NOTE | 2018-11-23 19:20 | NUR ---
MS RN OPENING NOTES Patient received sleeping in bed, arousable. Alert, oriented x 3. Breathing even and unlabored, not in any distress. Patient's V/S: BP- 88/57, HR- 76, RR- 18, SPO2- 100%. Family at bedside. PEDRO PICC line intact and patent, dressing clean and dry. Safety measures in place; call light within reach, bed in low, locked position. Will continue to monitor accordingly
[2018-11-23 20:00] VITALS: BP 135/53
--- NOTE | 2018-11-23 20:00 | NUR ---
RN NOTES Blood pressure rechecked- 135/53 mmHg.
[2018-11-23] MEDS: TAMSULOSIN 0.4 MG CAP.SR.24H GT SCH (21:31)
[2018-11-23] MEDS: SENNOSIDES 8.6 MG TABLET PO SCH (21:31)
[2018-11-23] MEDS: INSULIN GLARGINE, 100 UNIT/ML CARTRIDGE SQ SCH (21:34)
[2018-11-23 23:20] VITALS: BP 136/91
[2018-11-24] MEDS: VANCOMYCIN 1.25 GM in IV D5W 500 ML IV SCH ×2 (00:17→12:38)
[2018-11-24] MEDS: oxyCODONE/APAP (5/325 MG) 1 UDTAB TABLET PO PRN ×3 (02:19→21:37)
--- NOTE | 2018-11-24 02:19 | NUR ---
MS RN NOTES Patient c/o back pain, 11/03. V/S checked: BP- 132/81, HR- 74, RR- 18, SPO2- 98%. Percocet 5 given as ordered. Will continue to monitor accordingly
[2018-11-24] MEDS: CEFTRIAXONE 1 G in IV D5W 50 ML IV SCH (02:46)
[2018-11-24] MEDS: MORPHINE SULFATE INJ 4 MG/ML DISP.SYRIN IV PRN ×3 (05:03→16:27)
--- NOTE | 2018-11-24 05:03 | NUR ---
MS RN NOTES Patient c/o chest and back pain, 01/04, requested for morphine. V/S checked: BP- 127/77, HR- 91, SPO2- 98%. Morphine 4mg given as ordered. Will continue to monitor
[2018-11-24] MEDS: BLOOD SUGAR DIAGNOSTIC 1 EACH STRIP IN SCH ×4 (06:39→21:38)
[2018-11-24] MEDS: INSULIN REGULAR, HUMAN 100 UNIT/ML 3 ML VIAL SQ PRN ×4 (06:40→21:59)
--- NOTE | 2018-11-24 06:47 | NUR ---
MS RN CLOSING NOTES Patient sleeping in bed, easily arousable. Breathing even and unlabored. Not in any distress. BSL- 163mg/dL- 3 units insulin given per sliding scale. Patient has been refusing turns and repositioning. Patient also allowed us to clean and change him only once. Safety measures in place; call light within reach, bed in low, locked position. Will endorse LIZETT to oncoming RN
[2018-11-24 07:03] LABS: CALCIUM, SERUM 8.1 mg/dL (8.5-10.1); CREATININE 1.2 mg/dL (0.6-1.3); POTASSIUM 4.5 mmol/L (3.5-5.1)
--- NOTE | 2018-11-24 07:30 | NUR ---
MS RN OPENING NOTE RECEIVED PATIENT IN BED. A/O X3. RESPIRATIONS ARE EVEN AND UNLABORED. DENIES SOB. IV ACCESS RIGHT UPPER ARM PICC LINE RUNNING TKO. BED IS LOW AND LOCKED. CALL LIGHT WITHIN REACH. WILL CONTINUE TO MONITOR.
[2018-11-24 08:00] VITALS: BP 120/73
[2018-11-24] MEDS: GABAPENTIN 300 MG CAPSULE PO SCH ×3 (08:30→16:27)
[2018-11-24] MEDS: ASPIRIN 81 MG TAB.CHEW PO SCH (08:31)
[2018-11-24] MEDS: PANTOPRAZOLE 40 MG TABLET.DR PO SCH (08:31)
[2018-11-24] MEDS: FLUOXETINE HCL 20 MG CAPSULE PO SCH (08:31)
[2018-11-24] MEDS: LACTOBACILLUS RHAMNOSUS GG 1 EACH CAP.SPRINK PO SCH ×2 (08:31→16:27)
[2018-11-24] MEDS: ATORVASTATIN 10 MG TABLET PO SCH (08:31)
[2018-11-24] MEDS: ENOXAPARIN SODIUM 40 MG/0.4 ML DISP.SYRIN SQ SCH (08:32)
[2018-11-24] MEDS: LOSARTAN POTASSIUM 50 MG TABLET PO SCH (09:00)
[2018-11-24] MEDS: METHOCARBAMOL (500MG) 500 MG TABLET PO SCH ×3 (09:00→16:28)
--- NOTE | 2018-11-24 12:39 | NUR ---
MS RN NOTE - VANCO VANCOMYCIN 1.25G DUE 1300 WILL BE HELD DUE TO VANCO TROUGH 24. PHARMACY IS AWARE.
[2018-11-24 15:30] VITALS: BP 116/89
[2018-11-24] MEDS ORDERED: CEFTRIAXONE 1 G in IV D5W 50 ML IV SCH (15:30)
[2018-11-24] MEDS: SOD FERRIC GLUC 125 MG in IV NS 0.9% 100 ML IV SCH (15:52)
--- NOTE | 2018-11-24 18:50 | NUR ---
MS RN CLOSING NOTE PATIENT RESTING IN BED. PATIENT A/O X4. ROOM AIR, RESPIRATIONS EVEN AND UNLABORED. PAIN WAS MANAGED THROUGHOUT SHIFT. IV ACCESS PEDRO PICC LINE RUNNING TKO. NO APPARENT DISTRESS AT THIS TIME. BED IS LOW AND LOCKED. CALL LIGHT WITHIN REACH. WILL ENDORSE TO DIAL PAINTER FOR LIZETT.
--- NOTE | 2018-11-24 19:30 | NUR ---
MS RN NOTES RECEIVED ON BED SLEEPING,AROUSABLE TO VERBAL STIMULI,BREATHING NORMAL.WITH RIGHT UPPER ARM PICC LINE INTACT AND PATENT.STILL WITH REDNESS ON MID CHEST BYPASS SITE.CALL LIGHT IN REACH,NEEDS ANTICIPATED.
[2018-11-24 20:00] VITALS: BP 101/60
[2018-11-24 20:05] VITALS: BP 101/60
[2018-11-24] MEDS: TAMSULOSIN 0.4 MG CAP.SR.24H GT SCH (21:37)
[2018-11-24] MEDS: SENNOSIDES 8.6 MG TABLET PO SCH (21:37)
--- NOTE | 2018-11-24 21:37 | NUR ---
MS RN NOTES PAIN MANAGEMENT C/O CHEST PAIN 5-6/10 ON PAIN SCALE,PERCOCET 1 TAB PO GIVEN ORDERED FOR MODERATE PAIN.
--- NOTE | 2018-11-24 21:40 | NUR ---
MS RN NOTES ACCU-CHECK BLOOD SUGAR CHECK 220,COVERED WITH HUMULIN R 4 UNITS PER SLIDING SCALE,ALONG WITH LANTUS 20 UNITS Q HS SCHEDULED,GIVEN SQ ON RIGHT DELTOID.
[2018-11-24] MEDS: VANCOMYCIN 1 GM in IV D5W 250 ML IV SCH (22:00)
[2018-11-24] MEDS: INSULIN GLARGINE, 100 UNIT/ML CARTRIDGE SQ SCH (22:00)
--- NOTE | 2018-11-24 22:20 | NUR ---
MS RN NOTES VANCOMYCIN TROUGH DRAWN AT 2130 WAS 20,NIGHT PHARMACIST TELLY MADE AWARE,WITH ORDER TO HOLD DOSE FOR TONIGHT.
[2018-11-25] MEDS: MORPHINE SULFATE INJ 4 MG/ML DISP.SYRIN IV PRN ×5 (02:07→21:20)
--- NOTE | 2018-11-25 02:07 | NUR ---
MS RN NOTES PAIN MANAGEMENT AWAKE,C/O CHEST PAIN 10/10 ON PAIN SCALE,MEDICATED WITH MORPHINE 4MG IV ORDERED FOR SEVERE PAIN.REFUSED TO BE REPOSITION UNTIL MEDICINE KICKS IN.
[2018-11-25] MEDS: CEFTRIAXONE 1 G in IV D5W 50 ML IV SCH (03:14)
[2018-11-25] MEDS: oxyCODONE/APAP (5/325 MG) 1 UDTAB TABLET PO PRN ×3 (03:43→15:38)
--- NOTE | 2018-11-25 03:43 | NUR ---
MS RN NOTES C/O PAIN AFTER CHANGING DIAPER,PERCOCET 1 TAB PO GIVEN FOR PAIN SCALE 5/10.
--- NOTE | 2018-11-25 06:08 | NUR ---
MS RN NOTES AWAKE,CLAIMED HE'S IN SO MUCH PAIN ABOUT 9/10,MORPHINE 4MG IV GIVEN PER PATIENT REQUEST.
[2018-11-25] MEDS: BLOOD SUGAR DIAGNOSTIC 1 EACH STRIP IN SCH ×4 (06:12→21:20)
--- NOTE | 2018-11-25 06:15 | NUR ---
MS RN NOTES ACCU-CHECK BLOOD SUGAR CHECK 132,WILL COVER WITH HUMULIN R 2 UNITS PER SLIDING SCALE.
[2018-11-25 06:25] LABS: CALCIUM, SERUM 8.3 mg/dL (8.5-10.1); CREATININE 1.1 mg/dL (0.6-1.3); POTASSIUM 4.3 mmol/L (3.5-5.1)
--- NOTE | 2018-11-25 06:27 | NUR ---
MS RN NOTES NO SIGNIFICANT CHANGE IN STATUS,REMAINS IN PAIN MANAGE WITH MORPHINE IV AND PERCOCET PO ORDERED.D/C PLAN BACK TO [facility],NO NEED OF HIGHER LEVEL OF CARE PER ERIKA ZUÑIGA ACNAubrey.NEEDS F/U WITH HIS [place] THORACIC SURGEON DR RUBIO.AWAITING BLOOD CULTURE RESULT,MIGHT NEED ASSISTED IV ABX.IN NO ACUTE DISTRESS.WILL ENDORSE TO DAY NURSE FOR LIZETT.
[2018-11-25 06:44] LABS: BASOPHILS % (AUTO) 0.2 % (0.0-2.0); EOSINOPHILS % (AUTO) 4.5 % (0.0-6.0); HEMATOCRIT 28 % (39-51); HEMOGLOBIN 9.2 g/dL (13.5-17.5); LYMPHOCYTES # (AUTO) 0.7 /CMM (0.8-4.8); LYMPHOCYTES % (AUTO) 8.1 % (20.0-44.0); MEAN CORPUSCULAR HGB CONC 33 g/dl (31.0-36.0); MEAN CORPUSCULAR VOLUME 76 fL (80-96); MONOCYTES # (AUTO) 0.8 /CMM (0.1-1.30); MONOCYTES % (AUTO) 8.3 % (2.0-12.0); NEUTROPHILS # (AUTO) 7.2 /CMM (1.8-8.9); NEUTROPHILS % (AUTO) 78.9 % (43.0-81.0); PLATELET COUNT (AUTO) 248 /CMM (150-450); RED BLOOD CELL COUNT(AUTO) 3.69 MIL/uL (4.5-6.0); WHITE BLOOD COUNT (AUTO) 9.1 K/uL (4.3-11.0)
--- NOTE | 2018-11-25 07:33 | NUR ---
RN OPENING NOTES PT RESTING IN BED. NO APPARENT S/S OF PAIN, DISTRESS OR SOB AT THIS TIME. PT HAS RIGHT UPPER ARM PICC LINE. SAFETY PRECAUTIONS IN PLACE, BED IN LOWEST LOCKED POSITION, X2 SIDE RAILS UP AND CALL LIGHT WITHIN REACH. WILL CONTINUE TO MONITOR.
[2018-11-25 08:00] VITALS: BP 111/68
[2018-11-25] MEDS: GABAPENTIN 300 MG CAPSULE PO SCH ×3 (08:19→17:00)
[2018-11-25] MEDS: LACTOBACILLUS RHAMNOSUS GG 1 EACH CAP.SPRINK PO SCH ×2 (08:19→17:00)
[2018-11-25] MEDS: LOSARTAN POTASSIUM 50 MG TABLET PO SCH (08:19)
[2018-11-25] MEDS: ATORVASTATIN 10 MG TABLET PO SCH (08:19)
[2018-11-25] MEDS: ASPIRIN 81 MG TAB.CHEW PO SCH (08:19)
[2018-11-25] MEDS: METHOCARBAMOL (500MG) 500 MG TABLET PO SCH ×3 (08:19→17:00)
[2018-11-25] MEDS: FLUOXETINE HCL 20 MG CAPSULE PO SCH (08:19)
[2018-11-25] MEDS: PANTOPRAZOLE 40 MG TABLET.DR PO SCH (08:20)
[2018-11-25] MEDS: ENOXAPARIN SODIUM 40 MG/0.4 ML DISP.SYRIN SQ SCH (08:22)
[2018-11-25] MEDS: VANCOMYCIN 1 GM in IV D5W 250 ML IV SCH (10:00)
[2018-11-25] MEDS: INSULIN REGULAR, HUMAN 100 UNIT/ML 3 ML VIAL SQ PRN ×2 (12:14→17:27)
[2018-11-25] MEDS: SOD FERRIC GLUC 125 MG in IV NS 0.9% 100 ML IV SCH (13:05)
[2018-11-25 16:00] VITALS: BP 113/69
--- NOTE | 2018-11-25 18:58 | NUR ---
RN CLOSING NOTES PT RESTING IN BED. ALL PATIENTS NEEDS MET DURING SHIFT. PAIN MANAGED WITH MORPHINE AND PERCOCET 5. PT HAS RIGHT UPPER ARM PICC LINE. SAFETY PRECAUTIONS IN PLACE, BED IN LOWEST LOCKED POSITION, X2 SIDE RAILS UP AND CALL LIGHT WITHIN REACH. WILL ENDORSE TO RN PLASMA CENTER NURSE FOR CONTINUITY OF CARE.
--- NOTE | 2018-11-25 19:30 | NUR ---
MS RN NOTES RECEIVED RESTING COMFORTABLY ON BED,A/O X3,BREATHING REGULAR,NOT IN ANY FORM OF DISTRESS.PICC LINE REMAINS PATENT ON RIGHT UPPER ARM.RIGHT FOOT WITH HEEL PROTECTOR IN USED.DRESSING TO CHEST INTACT AND DRY.CALL LIGHT IN REACH,NEEDS ANTICIPATED.
[2018-11-25 20:00] VITALS: BP 117/66
[2018-11-25 20:14] VITALS: BP 117/66
[2018-11-25] MEDS: TAMSULOSIN 0.4 MG CAP.SR.24H GT SCH (21:20)
[2018-11-25] MEDS: SENNOSIDES 8.6 MG TABLET PO SCH (21:20)
--- NOTE | 2018-11-25 21:20 | NUR ---
MS RN NOTES PAIN MANAGEMEN C/O PAIN VIA ELFT ARM 10/10 ON PAIN SCALE,MEDICATED WITH MORPHINE 4MG IV ORDERED FOR SEVERE PAIN
--- NOTE | 2018-11-25 21:30 | NUR ---
MS RN NOTES ACCU-CHECK BLOOD SUGAR CHECK 128,NO INSULIN COVERAGE.REFUSED LANTUS 20 UNITS SCHEDULED
[2018-11-25] MEDS: INSULIN GLARGINE, 100 UNIT/ML CARTRIDGE SQ SCH (22:00)
--- NOTE | 2018-11-26 01:00 | NUR ---
MS RN NOTES REFUSED TO BE REPOSITION THIS TIME
[2018-11-26] MEDS: oxyCODONE/APAP (5/325 MG) 1 UDTAB TABLET PO PRN (01:28)
--- NOTE | 2018-11-26 01:28 | NUR ---
MS RN NOTES AWAKE,C/O PAIN ON LEFT ARM,5-6/10 OM PAIN SCALE.MEDICATED WITH PERCOCET 1 TAB PO ORDERED FOR MODERATE PAIN.
[2018-11-26] MEDS: CEFTRIAXONE 1 G in IV D5W 50 ML IV SCH (03:06)
[2018-11-26] MEDS: VANCOMYCIN 1 GM in IV D5W 250 ML IV SCH ×2 (04:04→22:23)
--- NOTE | 2018-11-26 06:36 | NUR ---
MS RN NOTES FAIRLY RESTED AT NIGHT.PAIN MANAGEMENT EFFECTIVE.POSSIBLE D/C BACK TO [facility] WITH PICC LINE FOR HALF-WAY IV ABX TREATMENT.IN NO ACUTE DISTRESS.WILL ENDORSE TO [place] FOR LIZETT.
[2018-11-26] MEDS: PANTOPRAZOLE 40 MG TABLET.DR PO SCH (07:35)
[2018-11-26] MEDS: BLOOD SUGAR DIAGNOSTIC 1 EACH STRIP IN SCH ×4 (07:35→22:11)
--- NOTE | 2018-11-26 07:49 | NUR ---
M/S RN NOTES PATIENT RESTING IN BED, ALERT AND ORIENTED X4, NO RESPIRATORY DISTRESS, NO C/O PAIN AT THIS TIME. IV ACCESS INTACT AND PATENT, NO REDNESS, NO INFILTRATION NOTED. PATIENT'S NEEDS ATTENDED. BED ON LOWEST LOCKED POSITION, CALL LIGHT WITHIN REACH. WILL CONTINUE TO MONITOR.
[2018-11-26 08:00] VITALS: BP 118/75
[2018-11-26] MEDS: ASPIRIN 81 MG TAB.CHEW PO SCH (08:37)
[2018-11-26] MEDS: FLUOXETINE HCL 20 MG CAPSULE PO SCH (08:37)
[2018-11-26] MEDS: ATORVASTATIN 10 MG TABLET PO SCH (08:37)
[2018-11-26] MEDS: LOSARTAN POTASSIUM 50 MG TABLET PO SCH (08:37)
[2018-11-26] MEDS: LACTOBACILLUS RHAMNOSUS GG 1 EACH CAP.SPRINK PO SCH ×2 (08:37→17:38)
[2018-11-26] MEDS: METHOCARBAMOL (500MG) 500 MG TABLET PO SCH ×3 (08:37→17:38)
[2018-11-26] MEDS: GABAPENTIN 300 MG CAPSULE PO SCH ×3 (08:37→17:38)
[2018-11-26] MEDS: ENOXAPARIN SODIUM 40 MG/0.4 ML DISP.SYRIN SQ SCH (08:39)
[2018-11-26] MEDS: MORPHINE SULFATE INJ 4 MG/ML DISP.SYRIN IV PRN ×4 (09:03→19:43)
[2018-11-26 11:13] LABS: CALCIUM, SERUM 8.4 mg/dL (8.5-10.1); POTASSIUM 4.4 mmol/L (3.5-5.1)
[2018-11-26] MEDS: INSULIN REGULAR, HUMAN 100 UNIT/ML 3 ML VIAL SQ PRN ×3 (12:02→22:37)
[2018-11-26] MEDS: SOD FERRIC GLUC 125 MG in IV NS 0.9% 100 ML IV SCH (15:38)
[2018-11-26 16:00] VITALS: BP 104/62
--- NOTE | 2018-11-26 18:15 | NUR ---
M/S RN NOTES PATIENT RESTING IN BED, NO RESPIRATORY DISTRESS, NO C/O PAIN AT THIS TIME. PATIENT'S NEEDS ATTENDED. BED ON LOWEST LOCKED POSITION, CALL LIGHT WITHIN REACH. WILL ENDORSE TO ONCOMING NURSE.
--- NOTE | 2018-11-26 19:00 | NUR ---
RN medsurg opening notes Received Pt from morning nurse. Pt is alert and oriented X3. Pt is resting in bed comfortably. Respiration is normal. No SOB. No nausea or vomiting. No S/S of distress noted. PICC line PEDRO is clean, intact, patent, flush without resistance and SL. Instructed to call. Safety precautions is maintained. Bed at low position, brakes on, side rails up x3 and call light is within reach. Will continue to monitor.
--- NOTE | 2018-11-26 19:43 | NUR ---
RN medsurg notes Administered morphine sulfate Inj 4mg/ml IV push as ordered for pain at medial chest 10/10 on pain scale per Pt requested. BP 130/79, PULSE 83, RESP 18, TEMP 98.6, O2 SAT 96% on room air. Instructed to call. Call light is within reach. Will continue to monitor.
[2018-11-26 20:00] VITALS: BP 130/79
[2018-11-26] MEDS: TAMSULOSIN 0.4 MG CAP.SR.24H GT SCH (22:07)
[2018-11-26] MEDS: SENNOSIDES 8.6 MG TABLET PO SCH (22:07)
[2018-11-26] MEDS: INSULIN GLARGINE, 100 UNIT/ML CARTRIDGE SQ SCH (22:34)
--- NOTE | 2018-11-27 02:00 | NUR ---
RN medsumiguel notes Pt refused to be repositioned. Offered multiple times. Pt states 'I'm fine". Pt kept refusing to be reposition.
[2018-11-27] MEDS: CEFTRIAXONE 1 G in IV D5W 50 ML IV SCH (02:15)
[2018-11-27 03:41] VITALS: BP 149/89
[2018-11-27] MEDS: MORPHINE SULFATE INJ 4 MG/ML DISP.SYRIN IV PRN ×3 (03:46→13:32)
--- NOTE | 2018-11-27 03:46 | NUR ---
RN medsurg notes Administered Morphine sulfate Inj 4mg/ml IV push as ordered for pain at left shoulder 10/10 on pain scale per Pt requested. BP 149/89, PULSE 79, RESP 20, TEMP 98.0, O2 SAT 96% on room air. Instructed to call. Call light is within reach. Will continue to monitor.
[2018-11-27] MEDS: BLOOD SUGAR DIAGNOSTIC 1 EACH STRIP IN SCH ×2 (06:30→12:59)
[2018-11-27] MEDS: INSULIN REGULAR, HUMAN 100 UNIT/ML 3 ML VIAL SQ PRN ×2 (06:32→13:00)
--- NOTE | 2018-11-27 06:59 | NUR ---
RN medsurg closing notes Pt is resting in bed comfortably. No SOB. No nausea or vomiting. No S/S of distress noted. PICC line is intact, clean, patent and SL. Routine meds were given as ordered. Pain meds were given as ordered. All needs met and attended. Safety precautions is maintained. Bed at low position and call light is within reach. Will endorse to morning nurse for LIZETT.
--- NOTE | 2018-11-27 07:10 | NUR ---
MS RN NOTES PATIENT IN BED EYES CLOSED, EASY TO AROUSE, RESPOND TO VERBAL AND TACTILE STIMULI. NO FACIAL GRIMACING NOTED. NO ACUTE DISTRESS NOTED. BREATHING UNLABORED. IV ACCESS PATENT AND INTACT. NO REDNESS OR SWELLING NOTED. MID CHEST DRESSING CLEAN DRY AND INTACT. SAFETY MEASURES IN PLACE. CALL LIGHT WITHIN REACH. WILL CONTINUE TO MONITOR ACCORDINGLY.
[2018-11-27 07:41] LABS: CALCIUM, SERUM 8.8 mg/dL (8.5-10.1); CREATININE 0.9 mg/dL (0.6-1.3); POTASSIUM 4.5 mmol/L (3.5-5.1)
[2018-11-27] MEDS: PANTOPRAZOLE 40 MG TABLET.DR PO SCH (07:46)
[2018-11-27 08:00] VITALS: BP 165/72
[2018-11-27] MEDS: ATORVASTATIN 10 MG TABLET PO SCH (08:39)
[2018-11-27] MEDS: ASPIRIN 81 MG TAB.CHEW PO SCH (08:39)
[2018-11-27] MEDS: FLUOXETINE HCL 20 MG CAPSULE PO SCH (08:39)
[2018-11-27] MEDS: GABAPENTIN 300 MG CAPSULE PO SCH ×3 (08:39→16:37)
[2018-11-27] MEDS: LACTOBACILLUS RHAMNOSUS GG 1 EACH CAP.SPRINK PO SCH ×2 (08:39→16:37)
[2018-11-27] MEDS: METHOCARBAMOL (500MG) 500 MG TABLET PO SCH ×3 (08:39→16:37)
[2018-11-27 08:40] VITALS: BP 156/89
[2018-11-27] MEDS: LOSARTAN POTASSIUM 50 MG TABLET PO SCH (08:40)
[2018-11-27] MEDS: ENOXAPARIN SODIUM 40 MG/0.4 ML DISP.SYRIN SQ SCH (08:42)
[2018-11-27] MEDS: SOD FERRIC GLUC 125 MG in IV NS 0.9% 100 ML IV SCH (14:47)
[2018-11-27] MEDS ORDERED: Morphine Sulfate Inj IV (15:04)
[2018-11-27] MEDS ORDERED: VANCOMYCIN 1.25 GM in IV D5W 500 ML IV SCH (16:00)
[2018-11-27] MEDS: ACETAMINOPHEN 325 MG TABLET PO PRN (17:13)
--- NOTE | 2018-11-27 17:30 | NUR ---
MS RN NOTES PATIENT DISCHARGE TO [facility] WITH STABLE VITALS SIGNS. NO ACUTE DISTRESS NOTED. DISCHARGE INSTRUCTIONS GIVEN TO THE PATIENT INCLUDING FOLLOW UP WITH MD, NEW MEDICATIONS AND CONTINUE ANTIBIOTICS, VERBALIZED UNDERSTANDING.REPORT GIVEN TO SOPHIE VILLA OF [facility]. ALL BELONGINGS ACCOUNTED FOR. MID CHEST DRESSING CLEAN DRY AND INTACT. RIGHT FOOT WITH BOOTS IN PLACE. RIGHT UPPER ARM PICC LINE PATENT AND INTACT WITH TRANSPARENT DRESSING SIGNED AND DATED, NO REDNESS, NO SWELLING, NO BLEEDING NOTED. PATIENT TO CONTINUE IV ANTIBIOTIC AT [facility]. PICKED UP VIA AMBULANCE IN A GURNEY ACCOMPANIED BY 2 EMT PERSONNEL IN STABLE CONDITION.
== END 2018-11-27 13:15 | DRG 862 ==
LOC: ER 21:54 → TELE 11-22 01:34 → MED 11-22 10:01
PROVIDERS: ADMIT Nurse Practitioner Acute Care; ATTEND Nurse Practitioner Acute Care
PROC: 02HV33Z Insertion of Infusion Device into Superior Vena Cava, Percutaneous Approach (ICD-10-PCS; principal; 2018-11-22)
PROC: B548ZZA Ultrasonography of Superior Vena Cava, Guidance (ICD-10-PCS; 2018-11-22)
DX: T81.49XA Infection following a procedure, other surgical site, initial encounter (principal); E43 Unspecified severe protein-calorie malnutrition; R53.2 Functional quadriplegia; D68.59 Other primary thrombophilia; L03.313 Cellulitis of chest wall; J98.11 Atelectasis; E87.1 Hypo-osmolality and hyponatremia; M86.9 Osteomyelitis, unspecified; I10 Essential (primary) hypertension; I48.91 Unspecified atrial fibrillation; F32.9 Major depressive disorder, single episode, unspecified; Y83.8 Other surgical procedures as the cause of abnormal reaction of the patient, or of later complication, without mention of misadventure at the time of the procedure; Y92.009 Unspecified place in unspecified non-institutional (private) residence as the place of occurrence of the external cause; E78.5 Hyperlipidemia, unspecified; I25.10 Atherosclerotic heart disease of native coronary artery without angina pectoris; I25.2 Old myocardial infarction; Z95.2 Presence of prosthetic heart valve; Z95.1 Presence of aortocoronary bypass graft; Z87.891 Personal history of nicotine dependence; Z86.73 Personal history of transient ischemic attack (TIA), and cerebral infarction without residual deficits; Z86.19 Personal history of other infectious and parasitic diseases; Z79.899 Other long term (current) drug therapy; Z79.891 Long term (current) use of opiate analgesic; Z79.4 Long term (current) use of insulin; Z89.431 Acquired absence of right foot; D50.9 Iron deficiency anemia, unspecified; I27.20 Pulmonary hypertension, unspecified; E11.51 Type 2 diabetes mellitus with diabetic peripheral angiopathy without gangrene; E11.69 Type 2 diabetes mellitus with other specified complication; E11.40 Type 2 diabetes mellitus with diabetic neuropathy, unspecified; G89.4 Chronic pain syndrome; F19.10 Other psychoactive substance abuse, uncomplicated; Z79.82 Long term (current) use of aspirin; Z74.01 Bed confinement status; Z95.828 Presence of other vascular implants and grafts; Z86.718 Personal history of other venous thrombosis and embolism
CPT/HCPCS: 36415; 71045-TC; 80048-TC; 80053-TC; 80061-TC; 80076-TC; 80202-TC; 82728-TC; 82962-TC; 83540-TC; 83605-TC; 83735-TC; 83880; 84100-TC; 84443-TC; 84484-TC; 85025-TC; 85378-TC; 85730-TC; 87040-TC; 87070-TC; 87081-TC; 87186-TC; 87806; 93307-TC; A4349; A6253; G0378; J0696; J1170; J1650; J1815; J2270; J2405; J2916; J3370; J3475; J3490; J7030; J7040; J7050; J7060; Q9967

== ENCOUNTER 2020-10-15 14:39 | Emergency (ER) | payer OTHER, MEDICAID ==
[~2020-10-15] VITALS: Ht 170.2 cm; Wt 94.3 kg
[~2020-10-15 14:39] MED LIST: ASPI-1169 PO; ATOR10TA PO; CEFT1VIA15 IV; FLUO20CA42 PO; GABA300C PO; INSU100V7 SQ; LACT1CAP72 PO; LOSA50TA3 PO; METH-806 PO; Morphine Sulfate Inj IV; OXYC1TAB8 PO; PANT40TA49 PO; RXVAN XX; SENN-261 PO; TAMS-12 PO; VANC1.2526 IV
[2020-10-15] MEDS ORDERED: ARGI1POW13 PO (15:18)
[2020-10-15] MEDS ORDERED: GABA-532 PO (15:18)
[2020-10-15] MEDS ORDERED: MINO100T PO (15:18)
[2020-10-15] MEDS ORDERED: ACET-868 PO (15:18)
[2020-10-15] MEDS ORDERED: ATOR40TA PO (15:18)
[2020-10-15] MEDS ORDERED: ZINC220C6 PO (15:18)
[2020-10-15] MEDS ORDERED: ONDA4TAB5 PO (15:18)
[2020-10-15] MEDS ORDERED: OMEP20TA20 PO (15:18)
[2020-10-15] MEDS ORDERED: POLY15DR40 EACHEYE (15:18)
[2020-10-15] MEDS ORDERED: MULT-24 PO (15:18)
[2020-10-15] MEDS ORDERED: FERR325T23 PO (15:18)
[2020-10-15] MEDS ORDERED: MELA3TAB41 PO (15:18)
[2020-10-15] MEDS ORDERED: DULO60CA45 PO (15:18)
[2020-10-15] MEDS ORDERED: DOCU-141 PO (15:18)
[2020-10-15] MEDS ORDERED: LISI2.5T2 PO (15:18)
[2020-10-15] MEDS ORDERED: BISA5TAB10 PO (15:18)
[2020-10-15] MEDS ORDERED: LIDO30AD10 TP (15:18)
[2020-10-15] MEDS ORDERED: LACO100T2 PO (15:18)
[2020-10-15] MEDS ORDERED: HYDR4TAB57 PO (15:18)
[2020-10-15] MEDS ORDERED: CHOL100062 PO (15:18)
[2020-10-15] MEDS ORDERED: FINA5TAB11 PO (15:18)
[2020-10-15] MEDS ORDERED: METF-881 PO (15:18)
[2020-10-15] MEDS ORDERED: ASCO-352 PO (15:18)
[2020-10-15] MEDS ORDERED: CALC500T63 PO (15:18)
[2020-10-15] MEDS ORDERED: SPIR25TA6 PO (15:18)
[2020-10-15] MEDS ORDERED: RIFA300C4 PO (15:18)
[2020-10-15] MEDS ORDERED: INSU100V42 SQ (15:18)
[2020-10-15 15:22] LABS: BASOPHILS # (AUTO) 0.1 /CMM (0.0-0.2); BASOPHILS % (AUTO) 0.8 % (0.0-2.0); HEMATOCRIT 36 % (39-51); HEMOGLOBIN 11.6 g/dL (13.5-17.5); MEAN CORPUSCULAR HGB CONC 32 g/dl (31.0-36.0); MEAN CORPUSCULAR VOLUME 85 fL (80-96); MONOCYTES # (AUTO) 0.6 /CMM (0.1-1.30); NEUTROPHILS % (AUTO) 76.2 % (43.0-81.0); PLATELET COUNT (AUTO) 226 /CMM (150-450); RED BLOOD CELL COUNT(AUTO) 4.24 MIL/uL (4.5-6.0); WHITE BLOOD COUNT (AUTO) 7.8 K/uL (4.3-11.0)
--- NOTE | 2020-10-15 15:24 | NUR ---
Patient araseli, from snf, c/o body pain and poor oral intake x 2 days. On room air, breathing evenly and unlabored. Connected to the monitor and pulse ox. kept comfortable, will continue to monitor accordingly.
[2020-10-15 15:29] LABS: CALCIUM, SERUM 8.9 mg/dL (8.5-10.1); CARBON DIOXIDE 26 mmol/L (21-32); CHLORIDE 104 mmol/L (98-107); CREATININE 0.7 mg/dL (0.6-1.3); GLUCOSE 102 mg/dL (74-106); POTASSIUM 4.5 mmol/L (3.5-5.1); SODIUM SERUM 137 mmol/L (136-145); UREA NITROGEN, BLOOD 20 mg/dL (7-18)
[2020-10-15 15:35] LABS: ALANINE AMINOTRANSFERASE 26 U/L (12-78); ALBUMIN 2.5 g/dL (3.4-5.0); ALKALINE PHOSPHATASE 113 U/L (46-116); ASPARTATE AMINOTRANSFERASE 15 U/L (15-37); BILIRUBIN,DIRECT 0.2 mg/dL (0.0-0.2); BILIRUBIN,TOTAL 0.3 mg/dL (0.2-1.0); LIPASE 22 U/L (73-393); TOTAL PROTEIN, SERUM 6.6 g/dL (6.4-8.2)
[2020-10-15] MEDS ORDERED: IOHEXOL-300 100 ML VIAL IV ONE (15:39)
[2020-10-15] MEDS ORDERED: IV NS 0.9% 250 ML IV ONE (15:39)
[2020-10-15] MEDS ORDERED: HYDROMORPHONE HCL 2 MG TABLET PO STA (15:59)
[2020-10-15] MEDS ORDERED: HYDROMORPHONE HCL 2 MG TABLET ONE (16:10)
--- NOTE | 2020-10-15 16:36 | NUR ---
patient refused in and out cath for urine collection, notified and aware.
--- NOTE | 2020-10-15 18:02 | NUR ---
urine collected and sent to lab.
[2020-10-15 18:08] LABS: BILIRUBIN,URINE SMALL (NEGATIVE); COLOR,URINE AMBER (YELLOW); LEUKOCYTE ESTERASE ,URINE Negative (NEGATIVE); NITRITE, URINE Negative (NEGATIVE); PH,URINE 5.5 (5.0-8.0); PROTEIN,URINE 100 mg/dl (NEGATIVE); UGLUCOSE Negative (NEGATIVE)
[2020-10-15] MEDS ORDERED: POLY17PO4 PO (18:25)
[2020-10-15] MEDS ORDERED: IV NS 0.9% 500 ML BAG IV ONE (18:30)
[2020-10-15 18:31] LABS: BACTERIA,URINE Few /HPF (None Seen); SQUAMOUS EPITHELIAL CELL,UR Few /HPF (None Seen)
[2020-10-15 18:32] LABS: HYALINE CASTS, URINE Rare /LPF (None Seen); RBC,URINE 0-2 /HPF (0-2); WBC,URINE 0-2 /HPF (0-3)
[2020-10-15] MEDS ORDERED: CEPH500C2 PO (18:49)
--- NOTE | 2020-10-15 18:57 | NUR ---
called [facility] for patient transport back to facility. eta 15 mins.
[2020-10-15 19:30] VITALS: BP 120/77
--- NOTE | 2020-10-15 19:48 | NUR ---
REPORT GIVEN TO JESSICA CHARGE NURSE AT [facility]
--- NOTE | 2020-10-15 20:08 | NUR ---
[facility] AT BEDSIDE FOR TRANSPORT
== END 2020-10-15 20:34 ==
LOC: ER 14:54
DX: K59.00 Constipation, unspecified (principal); K80.20 Calculus of gallbladder without cholecystitis without obstruction; E86.0 Dehydration; L03.113 Cellulitis of right upper limb; D64.9 Anemia, unspecified; I48.91 Unspecified atrial fibrillation; E11.9 Type 2 diabetes mellitus without complications; I10 Essential (primary) hypertension; E78.5 Hyperlipidemia, unspecified; F32.9 Major depressive disorder, single episode, unspecified; N40.0 Benign prostatic hyperplasia without lower urinary tract symptoms; G89.4 Chronic pain syndrome; Z98.890 Other specified postprocedural states; Z86.73 Personal history of transient ischemic attack (TIA), and cerebral infarction without residual deficits; Z79.899 Other long term (current) drug therapy; Z79.84 Long term (current) use of oral hypoglycemic drugs; Z79.82 Long term (current) use of aspirin
CPT/HCPCS: 36415; 71045; 74177; 80048; 80076; 81001; 83690; 84484; 85025; 93005; 93970; 93971; 96360; 99285; J7030; J7040; J7050; Q9967